=== PATIENT | male | born 1995 | race Caucasian/White ===

== ENCOUNTER 2021-03-08 15:34 | Day surgery (SDC) | payer OTHER ==
[2021-03-08] MEDS ORDERED: SODIUM CHLORIDE 0.9% 1,000 ML IV STA (15:52)
[2021-03-08] MEDS ORDERED: KETOROLAC 30 MG/ML VIAL IVP STA (15:52)
[2021-03-08] MEDS ORDERED: ONDANSETRON 4 MG/2 ML VIAL IVP STA (15:52)
--- NOTE | 2021-03-08 15:54 | ED Physician Documentation ---
PD HPI ABD PAIN - Stated complaint Stated Complaint: ABD PX/VOMITING - Chief complaint Chief Complaint: Abd Pain - History obtained from History obtained from: Patient - Additional information Additional information: Previously healthy 25-year-old gentleman, active duty in the [place] awoke this morning around 8 AM with central, nonmigratory abdominal pain and has been nauseous all day with a single episode of vomiting. Normal bowel movement yesterday, no bowel movement yet today. No history of abdominal surgeries. No fevers or chills. No sick contacts. No diarrhea. Review of Systems Ten Systems: 10 systems reviewed and negative Constitutional: reports: Reviewed and negative Ears: reports: Reviewed and negative Nose: reports: Reviewed and negative Throat: reports: Reviewed and negative PD PAST MEDICAL HISTORY - Allergies Allergies/Adverse Reactions: Allergies Allergy/AdvReac Type Severity Reaction Status Date / Time No Known Drug Allergies Allergy Verified 03/08/21 15:44 PD ED PE NORMAL - Vitals Vital signs reviewed: Yes - General General: Alert and oriented X 3, No acute distress - HEENT HEENT: PERRL, EOMI - Neck Neck: Supple, no meningeal sign, No bony TTP - Cardiac Cardiac: RRR, No murmur - Respiratory Respiratory: No respiratory distress, Clear bilaterally - Abdomen Abdomen: Normal bowel sounds, Soft, Other (Mild lower abdominal tenderness, on initial examination seems worse on the left than the right without guarding or rebound tenderness.) - Back Back: No CVA TTP, No spinal TTP - Derm Derm: Normal color, Warm and dry - Extremities Extremities: No edema, No calf tenderness / cord - Neuro Neuro: Alert and oriented X 3, Normal speech Results - Vitals Vitals: Vital Signs - 24 hr 03/08/21 15:39 Temperature 36.8 C Heart Rate 95 Respiratory 15 Rate Blood Pressure 146/97 H O2 Saturation 99 Oxygen O2 Source Room air - Labs Labs: Laboratory Tests 03/08/21 03/08/21 03/08/21 15:57 16:14 16:14 WBC 10.3 RBC 5.25 Hgb 16.2 Hct 46.8 MCV 89.1 MCH 30.9 MCHC 34.6 RDW 12.5 Plt Count 301 MPV 9.4 Neut # (Auto) 8.0 H Lymph # (Auto) 1.3 L [place] # (Auto) 0.7 Eos # (Auto) 0.2 Baso # (Auto) 0.1 Absolute Nucleated RBC 0.00 Nucleated RBC % 0.0 Sodium 141 Potassium 4.3 Chloride 103 Carbon Dioxide 28 Anion Gap 10.0 BUN 11 Creatinine 0.8 Estimated GFR (MDRD) 118 Glucose 114 H Calcium 9.7 Total Bilirubin 0.6 AST 20 ALT 43 Alkaline Phosphatase 85 Total Protein 7.9 Albumin 4.7 Globulin 3.2 Albumin/Globulin Ratio 1.5 Lipase 40 Urine Color YELLOW Urine Clarity CLEAR Urine pH 7.0 Ur Specific [place] 1.020 Urine Protein NEGATIVE Urine Glucose (UA) NEGATIVE Urine Ketones NEGATIVE Urine Occult Blood SMALL H Urine Nitrite NEGATIVE Urine Bilirubin NEGATIVE Urine Urobilinogen 0.2 (NORMAL) Ur Leukocyte Esterase NEGATIVE Urine RBC 0-5 Urine WBC 0-3 Ur Squamous Epith Cells NONE SEEN Urine Bacteria None Seen Ur Microscopic Review INDICATED Urine Culture Comments NOT INDICATED PD MEDICAL DECISION MAKING - ED course ED course: 25-year-old gentleman presents with central abdominal pain one episode of vomiting, fairly unimpressive exam, borderline high white count with slight left shift. CT concerning for early appendicitis. On-call surgeon, Dr. Mahesh Rehman was consulted at 5:36 PM and recommend Zosyn in the interim and will see the patient. Departure - Departure Disposition: ED Transfer to [facility] Clinical Impression: Appendicitis Qualifiers: Appendicitis type: acute appendicitis Acute appendicitis type: with localized peritonitis Appendicitis gangrene presence: without gangrene Appendicitis perforation presence: without perforation Appendicitis abscess presence: without abscess Qualified Code(s): K35.30 - Acute appendicitis with localized peritonitis, without perforation or gangrene Condition: Stable
[2021-03-08] MEDS ORDERED: IOPAMIDOL-300 100 ML VIAL ONE (15:55)
[2021-03-08 16:08] LABS: BILIRUBIN,URINE NEGATIVE (NEGATIVE); GLUCOSE, URINE (UA) NEGATIVE (NEGATIVE); KETONES,URINE (UA) NEGATIVE (NEGATIVE); LEUKOCYTE ESTERASE, URINE NEGATIVE (NEGATIVE); NITRITE,URINE NEGATIVE (NEGATIVE); OCCULT BLOOD,URINE SMALL (NEGATIVE); PROTEIN,URINE NEGATIVE (NEGATIVE); UROBILINOGEN,URINE 0.2 (NORMAL) E.U./dL (NORMAL)
[2021-03-08 16:11] LABS: CLARITY,URINE CLEAR (CLEAR)
[2021-03-08 16:21] LABS: BACTERIA,URINE None Seen /HPF (None Seen); RBC,URINE 0-5 /HPF (0-5); SQUAMOUS EPITHELIAL CELL,UR NONE SEEN (<= Few); WBC,URINE 0-3 /HPF (0-3)
[2021-03-08 16:24] LABS: BASOPHILS # (AUTO) 0.1 10^3/uL (0.0-0.1); BASOPHILS % (AUTO) 0.5 %; EOSINOPHILS # (AUTO) 0.2 10^3/uL (0.0-0.7); EOSINOPHILS % (AUTO) 1.9 %; HCT - HEMATOCRIT 46.8 % (42.0-52.0); HGB - HEMOGLOBIN 16.2 g/dL (14.0-18.0); LYMPHOCYTES # (AUTO) 1.3 10^3/uL (1.5-3.5); LYMPHOCYTES % (AUTO) 13.1 %; MEAN CORPUSCULAR HEMOGLOBIN 30.9 pg (27.0-31.0); MEAN CORPUSCULAR HGB CONC 34.6 g/dL (32.0-36.0); MEAN CORPUSCULAR VOLUME 89.1 fL (80.0-94.0); MEAN PLATELET VOLUME 9.4 fL (7.4-11.4); MONOCYTES # (AUTO) 0.7 10^3/uL (0.0-1.0); MONOCYTES % (AUTO) 6.3 %; NEUTROPHILS % (AUTO) 77.7 %; PLT - PLATELET COUNT 301 10^3/uL (130-450); RED BLOOD COUNT 5.25 10^6/uL (4.70-6.10); RED CELL DISTRIBUTION WIDTH 12.5 % (12.0-15.0); WHITE BLOOD COUNT 10.3 x10^3/uL (4.8-10.8)
[2021-03-08 16:38] LABS: ALBUMIN 4.7 g/dL (3.2-5.5); ALBUMIN/GLOBULIN RATIO 1.5 (1.0-2.2); BILIRUBIN,TOTAL 0.6 mg/dL (0.2-1.0); CALCIUM 9.7 mg/dL (8.5-10.3); CREATININE 0.8 mg/dL (0.6-1.2); POTASSIUM 4.3 mmol/L (3.5-5.0); TOTAL PROTEIN 7.9 g/dL (6.7-8.2)
[2021-03-08] MEDS ORDERED: IOPAMIDOL-300 100 ML VIAL IVP ONE (16:51)
--- NOTE | 2021-03-08 17:23 | CT Report ---
PROCEDURE: Abdomen/Pelvis W INDICATIONS: IV only, low abd pain CONTRAST: IV CONTRAST: Isovue 300 ml: 100 PO CONTRAST: *NO PO CONTRAST TECHNIQUE: After the administration of nonionic contrast, 5 mm thick sections acquired from the diaphragms to th e symphysis. 5 mm thick coronal and sagittal reformats were acquired. For radiation dose reduction, the following was used: automated exposure control, adjustment of mA and/or kV according to patient size. COMPARISON: None. FINDINGS: Image quality: Excellent. ABDOMEN: Lung bases: Lung bases are clear. Heart size is normal. Solid organs: Liver and spleen are normal in size and enhancement. Gallbladder is normal in appeara nce. Biliary system is non dilated. Pancreas enhances normally. No adrenal nodules. Kidneys demon strate normal size and enhancement, without hydronephrosis. Peritoneum and bowel: The stomach and small bowel are unremarkable. No evidence of obstruction. The a ppendix is dilated measuring up to 1.0 cm. There is subtle adjacent inflammation. The colon is normal in appearance. No free fluid or air. Nodes and vessels: No retroperitoneal or mesenteric adenopathy by size criteria. Aorta and inferior vena cava are normal in size. Miscellaneous: No ventral hernias. PELVIS: Genitourinary: Bladder wall thickness is normal. Miscellaneous: No inguinal hernias or adenopathy. Bones: No suspicious bony lesions. No vertebral body compression fractures. IMPRESSION: Dilated fluid-filled appendix with subtle adjacent inflammation concerning for early appendicitis. No evidence of complication. Reviewed by: Buddy High DO on 03/08/2021 4:21 PM YOLANDA Approved by: Buddy High DO on 03/08/2021 4:21 PM AKNEPTALI Station ID: [id number]
[2021-03-08] MEDS ORDERED: PIPERACILLIN/TAZOBACTAM 3.375 GM in SODIUM CHLORIDE 0.9% MINIBAG 100 ML IV STA (17:35)
[2021-03-08] MEDS ORDERED: HYDROmorphone 0.5 MG/0.5 ML SYRINGE IVP PRN (20:39)
[2021-03-08] MEDS ORDERED: ONDANSETRON 4 MG/2 ML VIAL IVP PRN (20:39)
--- NOTE | 2021-03-08 20:42 | SURGERY HX AND PHYSICAL(T) ---
Surgical History & Physical - Chief Complaint/HPI Chief Complaint: Acute appendicitis History of Present Illness: 25-year-old male presenting with 1 day of abdominal pain. Work-up included CT scan as well as lab evaluation. Patient notable for a mild leukocytosis, however imaging consistent with early appendicitis with inflammatory changes. Patient with no significant past medical or surgical history. Patient with p.o. ingestion this afternoon; thus opted to proceed to the operating room urgently for laparoscopic intervention the next a.m. - PMH/PSH/Social Hx Cardiovascular: Atrial fibrillation Smoking Status: Never smoker Does the pt drink ETOH?: Yes Frequency: Occasional Does the pt have substance abuse?: No - Home Meds and Allergies Allergies/Adverse Reactions: Allergies Allergy/AdvReac Type Severity Reaction Status Date / Time No Known Drug Allergies Allergy Verified 03/08/21 15:44 - Review of Systems Constitutional: Fatigue, Fever Gastrointestinal: Nausea, Abdominal pain Gentinourinary: No: Dysuria - Vital Signs Heart Rate: 61 Blood Pressure: 126/80 Temperature: 36.8 C Respiratory Rate: 16 O2 Saturation: 98 Weight (kg): 93.44 kg Height: 1.75 m - Physical Exam Comments/Other: General Appearance: positive: No acute distress Eyes Bilateral: positive: Normal inspection ENT: positive: ENT inspection nml Neck: positive: Nml inspection Respiratory: positive: Chest non-tender, No respiratory distress, Breath sounds nml. negative: Wheezes, Rales, Rhonchi Cardiovascular: positive: Regular rate & rhythm Abdomen: Soft, mildly distended. Positive tenderness to deep palpation suprapubic. No rebound no guarding. No generalized peritoneal signs. Extremities: positive: Non-tender, Full ROM, Nml appearance Neurologic/Psychiatric: positive: Oriented x3, CN's nml (2-12) - Patient Review Patient Review: Problems were reviewed with the patient during this visit. Medications were reviewed with the patient during this visit. Allergies were reviewed this patient during this visit. Pertinent Tests Reviewed: All pertitent test for this patient were reviewed. - Assessment & Plan Assessment and Plan: 25-year-old male presenting with acute appendicitis with no comorbid states. Leukocytosis to 10.3, CT consistent with early appendicitis. Plan going forward is as follows: 1. Bowel rest, IV fluid resuscitation, IV antibiotics. 2. Preoperative chest x-ray, preoperative EKG, labs evaluated. 3. Planned diagnostic laparoscopy, laparoscopic appendectomy, other indicated procedures. Patient counseled of the risk associated with operative intervention including but not limited to conversion to open procedure, injury to local structures, and anesthesia risks of heart attack, stroke, . 4. Postoperative care under observation status with continued IV antibiotics. CT abdomen pelvis impression: 1. Dilated fluid-filled appendix with subtle adjacent inflammation concerning for early appendicitis. No evidence of complication.
[2021-03-08 20:43] LABS: B. PARAPERTUSSIS- RESP PCR PAN NOT DETECTED; B. PERTUSSIS- RESP PCR PANEL NOT DETECTED; C. PNEUMONIAE- RESP PCR PANEL NOT DETECTED; CORONAVIRUS 229E-RESP PCR NOT DETECTED; CORONAVIRUS HKU1-RESP PCR NOT DETECTED; CORONAVIRUS NL63-RESP PCR NOT DETECTED; CORONAVIRUS OC43-RESP PCR NOT DETECTED; HUMAN METAPNEUMOVIRUS NOT DETECTED; INFLUENZA A- RESP PCR PANEL NOT DETECTED; INFLUENZA B - RESP PCR PANEL NOT DETECTED; M. PNEUMONIAE- RESP PCR PANEL NOT DETECTED; PARAINFLUENZA VIRUS 1 NOT DETECTED; PARAINFLUENZA VIRUS 2 NOT DETECTED; PARAINFLUENZA VIRUS 3 NOT DETECTED; PARAINFLUENZA VIRUS 4 NOT DETECTED; RHINOVIRUS/ENTEROVIRUS NOT DETECTED; RSV- RESP PCR PANEL NOT DETECTED; SARS-CoV-2 -RESP PCR PANEL NOT DETECTED
[2021-03-08] MEDS ORDERED: PREGABALIN 100 MG CAPSULE PO SCH (21:00)
[2021-03-08] MEDS: D5NS W/20 MEQ KCL 1,000 ML IV SCH (21:35)
[2021-03-08] MEDS: HEPARIN 5,000 UNIT/ML VIAL SUBQ SCH (21:38)
[2021-03-08] MEDS: PREGABALIN 100 MG CAPSULE PO SCH (21:59)
[2021-03-08] MEDS: PIPERACILLIN/TAZOBACTAM 3.375 GM in SODIUM CHLORIDE 0.9% MINIBAG 100 ML IV SCH (21:59)
[2021-03-09] MEDS: methocarbamoL 500 MG TABLET PO SCH ×3 (00:32→13:32)
[2021-03-09] MEDS: ACETAMINOPHEN 1,000 MG/100 ML 100 ML IV SCH ×3 (00:32→13:31)
[2021-03-09] MEDS: SODIUM CHLORIDE FLUSH 0.9% 10 ML SYRINGE IVP PRN ×2 (00:32→05:34)
[2021-03-09] MEDS: METOCLOPRAMIDE 10 MG/2 ML VIAL IVP SCH ×3 (00:32→13:32)
[2021-03-09] MEDS: PIPERACILLIN/TAZOBACTAM 3.375 GM in SODIUM CHLORIDE 0.9% MINIBAG 100 ML IV SCH ×2 (02:50→10:47)
[2021-03-09 05:53] LABS: ALBUMIN 3.7 g/dL (3.2-5.5); ALBUMIN/GLOBULIN RATIO 1.4 (1.0-2.2); BILIRUBIN,TOTAL 0.8 mg/dL (0.2-1.0); CALCIUM 8.8 mg/dL (8.5-10.3); CREATININE 0.8 mg/dL (0.6-1.2); POTASSIUM 3.9 mmol/L (3.5-5.0); TOTAL PROTEIN 6.3 g/dL (6.7-8.2)
[2021-03-09] MEDS: D5NS W/20 MEQ KCL 1,000 ML IV SCH (06:52)
[2021-03-09] MEDS ORDERED: MIDAZOLAM 2 MG/2 ML VIAL ONE (06:56)
[2021-03-09] MEDS ORDERED: LIDOCAINE-MPF 2% 5 ML VIAL ONE (06:57)
[2021-03-09] MEDS ORDERED: PROPOFOL 200 MG/20 ML VIAL IVP ONE (06:57)
[2021-03-09] MEDS ORDERED: fentaNYL 100 MCG/2 ML VIAL ONE ×2 (06:57→08:27)
[2021-03-09] MEDS ORDERED: ROCURONIUM 50 MG/5 ML VIAL ONE (06:58)
[2021-03-09] MEDS ORDERED: BUPIVACAINE 0.5%-EPI 1:200000 PF 30 ML VIAL ONE (07:31)
[2021-03-09] MEDS ORDERED: LIDOCAINE-MPF 1% 30 ML VIAL ONE (07:31)
[2021-03-09] MEDS ORDERED: HYDROmorphone 0.5 MG/0.5 ML SYRINGE IVP PRN (07:34)
[2021-03-09] MEDS ORDERED: ePHEDrine 50 MG/ML VIAL IVP PRN (07:34)
[2021-03-09] MEDS ORDERED: MORPHINE 2 MG/ML CARPUJECT IVP PRN (07:34)
[2021-03-09] MEDS ORDERED: ATROPINE ABBOJECT 1 MG/10 ML SYRINGE IVP PRN (07:34)
[2021-03-09] MEDS ORDERED: NALOXONE 0.4 MG/ML VIAL IVP PRN (07:34)
[2021-03-09] MEDS ORDERED: ONDANSETRON 4 MG/2 ML VIAL IVP PRN (07:34)
[2021-03-09] MEDS ORDERED: METOCLOPRAMIDE 10 MG/2 ML VIAL IVP PRN (07:34)
[2021-03-09] MEDS ORDERED: fentaNYL 100 MCG/2 ML VIAL IVP PRN (07:34)
--- NOTE | 2021-03-09 07:34 | ANESTHESIA ---
Pre-Anesthesia VS, & Labs - Diagnosis appendicitis - Procedure laparoscopic appendectomy Vital Signs: Temp Pulse Resp BP Pulse Ox 36.8 C 61 16 126/80 98 03/09/21 07:25 03/09/21 07:25 03/09/21 07:25 03/09/21 07:25 03/09/21 07:25 Height: 5 ft 9 in Weight (kg): 93.44 kg Body Mass Index: 30.4 BMI Classification: Obese - NPO >8 hours - Lab Results Current Lab Results: Laboratory Tests 03/09/21 05:24: Sodium 140, Potassium 3.9, Chloride 108, Carbon Dioxide 26, Anion Gap 6.0, BUN 8, Creatinine 0.8, Estimated GFR (MDRD) 118, Glucose 114 H, Calcium 8.8, Total Bilirubin 0.8, AST 15, ALT 33, Alkaline Phosphatase 65, Total Protein 6.3 L, Albumin 3.7, Globulin 2.6, Albumin/Globulin Ratio 1.4 03/08/21 16:14: Sodium 141, Potassium 4.3, Chloride 103, Carbon Dioxide 28, Anion Gap 10.0, BUN 11, Creatinine 0.8, Estimated GFR (MDRD) 118, Glucose 114 H, Calcium 9.7, Total Bilirubin 0.6, AST 20, ALT 43, Alkaline Phosphatase 85, Total Protein 7.9, Albumin 4.7, Globulin 3.2, Albumin/Globulin Ratio 1.5, Lipase 40 03/08/21 16:14: WBC 10.3, RBC 5.25, Hgb 16.2, Hct 46.8, MCV 89.1, MCH 30.9, MCHC 34.6, RDW 12.5, Plt Count 301, MPV 9.4, Neut # (Auto) 8.0 H, Lymph # (Auto) 1.3 L, [place] # (Auto) 0.7, Eos # (Auto) 0.2, Baso # (Auto) 0.1, Absolute Nucleated RBC 0.00, Nucleated RBC % 0.0 Fish Bones: 03/08/21 16:14 03/09/21 05:24 Home Medications and Allergies Active Medications Heparin Sodium (Porcine) (Heparin 5,000 Unit/Ml Vial) 5,000 unit SUBQ BID MARIE Last Admin: 03/08/21 21:38 Dose: Not Given Documented by: Hydromorphone HCl (Hydromorphone 0.5 Mg/0.5 Ml Syringe) 0.5 mg IVP Q2H PRN PRN Reason: PAIN Potassium Chloride/Dextrose/Sod Cl (D5ns W/20 Meq Kcl) 1,000 mls @ 125 mls/hr IV .Q8H [facility] Last Admin: 03/09/21 06:52 Dose: 125 mls/hr Documented by: Acetaminophen (Ofirmev) 100 mls @ 400 mls/hr IV Q6HR [facility] Last Infusion: 03/09/21 05:52 Dose: Infused Documented by: Piperacillin Sod/Tazobactam (Sod 3.375 gm/ Sodium Chloride) 100 mls @ 200 mls/hr IV Q6H [facility] Last Infusion: 03/09/21 03:20 Dose: Infused Documented by: Methocarbamol (Methocarbamol 500 Mg Tablet) 500 mg PO Q6HR [facility] Last Admin: 03/09/21 05:34 Dose: 500 mg Documented by: Metoclopramide HCl (Metoclopramide 10 Mg/2 Ml Vial) 10 mg IVP Q6HR [facility] Last Admin: 03/09/21 05:36 Dose: 10 mg Documented by: Ondansetron HCl (Ondansetron 4 Mg/2 Ml Vial) 4 mg IVP Q6HR PRN PRN Reason: Nausea / Vomiting Pregabalin (Pregabalin 100 Mg Capsule) 100 mg PO BID [facility] Last Admin: 03/08/21 21:59 Dose: 100 mg Documented by: Sodium Chloride (Sodium Chloride Flush 0.9% 10 Ml Syringe) 10 ml IVP PRN PRN PRN Reason: NEEDED PER PROVIDER ORDERS Last Admin: 03/09/21 05:34 Dose: 10 ml Documented by: Allergies/Adverse Reactions: Allergies Allergy/AdvReac Type Severity Reaction Status Date / Time No Known Drug Allergies Allergy Verified 03/08/21 15:44 Anes History & Medical History - Anesthetic History Anesthesia Complications: reports: No previous complications - Medical History Cardiovascular: reports: Atrial fibrillation Pulmonary: reports: None Smoking Status: Never smoker History of Cancer?: No Exam General: Alert Dental: WNL Mouth Opening: Greater than 4 Fingerbreadths Neck Mobility: Normal Mallampati classification: II Respiratory: Lungs clear Cardiovascular: Regular rate Plan Anesthesia Type: General Consent for Procedure(s) Verified and Reviewed: Yes Code Status: Attempt Resuscitation ASA classification: 2-Mild systemic disease Is this case an emergency?: No
[2021-03-09] MEDS ORDERED: GLYCOPYRROLATE 1 MG/5 ML VIAL ONE (07:48)
[2021-03-09] MEDS ORDERED: DEXAMETHASONE 4 MG/ML VIAL ONE (07:56)
[2021-03-09] MEDS ORDERED: ONDANSETRON 4 MG/2 ML VIAL ONE (07:56)
[2021-03-09] MEDS ORDERED: LACTATED RINGERS 1,000 ML IV SCH (08:00)
[2021-03-09] MEDS ORDERED: NEOSTIGMINE 1 MG/1 ML 10 ML MDV ONE (08:14)
[2021-03-09] MEDS ORDERED: KETOROLAC 30 MG/ML VIAL ONE (08:17)
[2021-03-09] MEDS ORDERED: LIDOCAINE 1% 50 ML MDV SUBQ ONE ×2 (08:31)
[2021-03-09] MEDS ORDERED: BUPIVACAINE 0.5%-EPI 1:200000 PF 30 ML VIAL SUBQ ONE ×2 (08:31)
[2021-03-09] MEDS ORDERED: oxyCODONE 5 MG TABLET PO PRN (08:57)
[2021-03-09] MEDS ORDERED: LACTATED RINGERS 500 ML IV ONE (09:02)
--- NOTE | 2021-03-09 09:02 | OPERATIVE REPORT ---
Operative Report - General Admit Date: 03/08/21 Procedure Date: 03/09/21 Planned Procedure: 1. Diagnostic laparoscopy 2. Laparoscopic appendectomy 3. Lysis of adhesions 4. Abdominal washout 5. Open umbilical hernia repair Pre-Op Diagnosis: Abdominal pain; acute appendicitis Procedure Performed: 1. Diagnostic laparoscopy 2. Laparoscopic appendectomy 3. Lysis of adhesions 4. Abdominal washout 5. Open umbilical hernia repair Post Op Diagnosis: Same; nonsuppurative, nonsuppurative appendicitis - Procedure Note Primary Surgeon: Ori Secondary Surgeon: Kavita Anesthesia Provider: Josué Anesthesia Technique: General ET tube, Local Pathology: Appendix Estimated Blood Loss (mL): 20 Drain/Tube Type: Other (None) Indications: See EMR H&P. Findings: See below. Complications: None - Other Other Information/Narrative: OPERATIVE PROCEDURE: The patient was taken to the operating room, placed supine on the operating table. The patent was already obtained tor informed consent which was documented in the patients permanent medical record The patient was induced for general endotracheal anesthesia. The patient was positioned, off loaded and padded at all pressure points. The patient was prepped and draped in the usual sterile fashion. The patient was called for a time out which was agreed to all in the room. Open Smith technique was performed through umbilicus and umbilical trocar was placed. This was achieved with a circumlinear micah-umbilical incision. This is taken through the subcutaneous fat, the umbilical stalk was dissected off and obvious hernia defect was appreciated. This was done without any injury to the umbilical skin. That [place] defect was enlarged and accommodated Smith trocar without any complication. Insufflation was commenced which the patient tolerated to 15 mmHg well with no complication. Additional trocars were placed suprapubic and left lower quadrant under direct laparoscopic vision. At this time the patient was placed in Trendelenburg position with right side up and we proceeded to isolate the cecum which was adhered to the sidewall. We appreciated a dilated appendix however there is no evidence of perforation and only mild local suppuration. The appendix was continued to be mobilized and thereafter we achieved mobilization medially taking care to note the location of the ureter which was protected and identified throughout the entirety at this case especially given the extent of the patients inflammatory changes. Ultimately the cecum was isolated free, and the appendix was thereafter completely mobilized off the abdominal and pelvic sidewall. At this time there were adhesions noted of the appendix to the ascending colon and cecum and this required careful dissection as well, both blunt and also using the suction computer forensics investigator and laparoscopic electrocautery. At this time a [place] was used to dissect the cecal-appendiceal junction and thereafter using a ENDOGIA linear cutting stapler, the appendix was divided at the base to include portion at the cecum. The ileocecal valve was identified and protected throughout with no involvement. At this time, we continued to mobilize the appendix off the ascending colon and caecum making sure there was no inadvertent injury to the ascending colon and the cecum which was again densely adhered to the appendix. The mesoappendix was also taken with a load of the Endo ERICH laparoscopic staple device, vascular. The appendix which was then placed into an Endo Catch bag for control of any further spillage. The appendiceal staple line and mesoappendix staple line and ligature were evaluated and hemostatic. At this time, we extensively irrigated the abdomen with greater than 2 liters of sterile saline and aspirated clear. At this time all trochars, secondary, were removed under direct laparoscopic visualization with no consequent bleeding. We reevaluated the left lower quadrant trocar and the inferior epigastric vessel for which there was no complication as well as the suprapubic trocar insertion site as well; these were both removed without any complication. We removed the Smith trocar, passed the specimen off for permanent pathology. We closed the umbilical defect with several [id number]'s of 0 Vicryl, and performed umbilicoplasty simultaneous. A mixture of quarter percent Marcaine and 1% lidocaine were instilled within the wounds for a total of 10 cc. All skin and subcutaneous tissue was reapproximated with skin marc. Wounds were dressed Telfa and Tegaderm. I was present for the entirety of this operative intervention patient tolerated procedure well which is no complication. All counts were sponges needles and instruments were correct at the conclusion of this operative case.
--- NOTE | 2021-03-09 10:22 | PHARMACY PROGRESS NOTE ---
- Best Possible Medication History Admit Date and Time: 03/08/212035 Processed by: Pharmacy Medication History completed: Yes Patient Interview: Completed Secondary Source(s): Physician records, Pharmacy records, Insurance records (PATIENT DOES NOT TAKE ANY HOME MEDICATIONS ) As the person ultimately responsible for medication therapy, providers are able to order a medication from an existing home medication list in [facility] via the "Reconcile Routine" prior to Confirmation of that medication by clerical support specialist. Such practice is discouraged except when the physician, in their clinical judgment, deems that a medical need exists for a medication without regard to previous use.
[2021-03-09] MEDS: HEPARIN 5,000 UNIT/ML VIAL SUBQ SCH (10:34)
[2021-03-09] MEDS: PREGABALIN 100 MG CAPSULE PO SCH (10:45)
[2021-03-09 11:34] VITALS: BP 141/83
--- NOTE | 2021-03-09 11:40 | ANESTHESIA POST OP EVALUATION ---
Anesthesia Post Eval - Post Anesthesia Eval Vitals: Last Vital Signs Temp 36.6 C 03/09/21 09:45 Pulse 60 03/09/21 11:31 Resp 20 03/09/21 11:31 BP 141/83 H 03/09/21 11:31 Pulse Ox 100 03/09/21 11:31 CV Function Including HR & BP: Stable Pain Control: Satisfactory Nausea & Vomiting: Negative Mental Status: Baseline Respiratory Status: Airway Patent Hydration Status: Satisfactory Anesthesia Complications: None
== END 2021-03-09 15:30 | disposition home or self-care (01) ==
LOC: ED 15:34 → SDS 19:15 → MS2 19:15 → UNDOADMOB 20:36 → SDS 03-09 15:30 → UNDODISOB 03-09 15:30
PROVIDERS: ATTEND Surgery
PROC: 0DTJ4ZZ Resection of Appendix, Percutaneous Endoscopic Approach (ICD-10-PCS; principal; 2021-03-09 07:30)
DX: K35.80 Unspecified acute appendicitis (principal); I48.91 Unspecified atrial fibrillation; K66.0 Peritoneal adhesions (postprocedural) (postinfection); E66.9 Obesity, unspecified; Z68.30 Body mass index [BMI] 30.0-30.9, adult; Z20.822 Contact with and (suspected) exposure to COVID-19
CPT/HCPCS: 0202U; 36415; 44970; 74177; 80048; 80053; 81001; 83690; 85025; 96365; 96375; 99284; 99285; A9270; J0131; J2765; J7120; Q9967; 81003; 87086

== ENCOUNTER 2021-03-24 14:41 | Outpatient (CLI) | payer OTHER ==
--- NOTE | 2021-03-24 15:23 | SLEEP CARE CONSULTATION ---
Information from patient questionnaire entered by Helga Ledbetter. I have reviewed and concur with the information entered by Helga Ledbetter. This document represents the service I personally performed and the decisions made by me, Ileana Cardozo ARNP. History of Present Illness Service Date and Time: 03/24/2021 1441 Reason for Visit: New patient Chief Complaint: reports: Unrefreshed sleep, Snoring, Excessive daytime sleepiness, Observed pauses in breathing, Other (sleep apnea) Date of Onset: 20 years plus Usual bedtime: 9 pm Time it takes to fall asleep: 1 hour Snores at night: Yes Observed to quit breathing while asleep: Yes Sleeps alone due to snoring: Yes Number of times waking at night: 1-2 Reasons for waking at night: reports: Snoring, Gasping for air, Bathroom Toss, Turn, or Twitch while sleeping: Yes Recalls having dreams: No Usually gets out of bed at: 5 am; 7-8 am Feels refreshed in the morning: No Morning headache: Yes (sometimes, resolves when I take Ibuprofen; 1-2 times a week) Sleepy or fatigued during the day: Yes Ever fallen asleep while driving: No Takes day naps: Yes (on weekends, 1 nap a day) Dreams during day naps: Yes Prior sleep studies: No Additional HPI information: I had the pleasure of seeing CHEKO OLIVIA today regarding the possibility of him having a sleep disorder. His current complaints are loud and frequent snoring, has woke up not breathing, his has observed pauses in breathing when he is sleeping, and unrefreshed sleep. He states he doesn't wake up feeling rested but once up and moving he feels awake. He was at a hospital for an appendectomy two weeks ago and they told him he should get checked for sleep apnea. He tells me that sometimes he has difficulty breathing out his nose. His father snores but does not have sleep apnea. - Parasomnia Symptoms Ever been unable to move upon waking from sleep: No Walks in sleep: No Talks in sleep: Yes Ever acted out dreams in sleep: No Ever felt weak in the knees when startled or emotional: No Bothered by creepy, crawly, restless sensations in legs: No Problems with memory or concentration: Yes (concentration, dx with ADHD when 10- 11 yrs old) Subjective Initial [place] Sleepiness Scale score: 11 (in 2020) Past Medical History Past Medical History: reports: Arrythmia (Atrial fibrillation 2019 episode, no longer has it), Other (ADHD as a child; appendenctomy March 2021) Social History 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 Have you smoked in the past 12 months: No (vapes daily) Cigarettes per day (20/pack): 7 Years of smokin Quit date: 2018 Smoking Pack Years: 1.2 Alcohol use: Yes Alcohol amount and frequency: 4-5 beers weekly Caffeine use: Yes Caffeine amount and frequency: sometimes, not every day Family History Family history of sleep disordered breathing: Yes Family Hx Sleep Apnea: Father: Snoring Allergies and Home Medications Drug allergies reviewed: Yes (NKDA) Home medication list reviewed: Yes Allergy and home medication list: Mulitivitamins Review of Systems Weight gain over past 5 years: 40 Weight loss over past 5 years: 30 Cardiovascular: denies: high blood pressure Gastrointestinal: reports: heartburn, diarrhea Neurological: denies: headaches Psychiatric: reports: Attention Deficit Hyperactivity Ear/Nose/Throat: reports: wisdom teeth removed. denies: tonsillectomy Immunologic: denies: allergies to food or environment Physical Exam Blood Pressure: 135/89 Cuff size: wrist Heart Rate: 94 O2 Saturation: 98 Height: 5 ft 9 in Weight: 219 lb Body Mass Index: 32.3 BMI Classification: Obese Neck circumference: 16.5 (inches) Mouth and throat: narrow oropharynx Soft palate: long Hard palate: normal Uvula: normal Uvula visualization: 100% Mallampati Class I Tongue: enlarged in size with teeth moraes on lateral edges Tonsils: small Neck: normal w/o lymphadenopathy or thyromegaly Heart: regular rate and rhythm Lungs: clear bilaterally Impression and Plan 1. Suspected Obstructive Sleep Apnea-Hypopnea Syndrome, as suggested by a history of loud and irregular snoring, observed cessation of breath while asleep, gasping or choking in sleep, morning headache, unrefreshed sleep, cognitive impairment, and excessive daytime sleepiness. Narrow oropharynx and obesity are common predisposing factors for obstructive sleep apnea-hypopnea syndrome. I recommend proceeding to polysomnography to confirm the diagnosis and to assess severity. If the patient has significant sleep disordered breathing, a manual CPAP titration study will also be performed to find the optimal treatment pressure. I informed the patient of what the sleep studies involve and after some discussion, obtained agreement to proceed. The pathophysiology of obstructive sleep apnea-hypopnea syndrome was discussed with the patient and health risks of cardiovascular and cerebrovascular disease if not treated. Risks of drowsy driving discussed in detail and patient advised to avoid long distance driving and to machine assembler for puller over at the first sign of drowsiness. Patient agreed to plan. * Schedule polysomnography +- manual CPAP titration study and return in 1-2 weeks after the study to discuss result and initiate therapy. * Avoid long distance driving or driving when feeling sleepy. * Avoid alcohol, sedative and muscle relaxant around bedtime. * Attempt to lose weight. * Review instructions provided by trained office staff on how to prepare for the sleep study. * Return for follow-up after sleep study completed. Counseling Topics: Weight loss health impact Visit Type: In Office Time Spent with Patient (minutes): 30 Provider Statement: I spent 100% of the Face to Face Visit with the patient with greater than 50% spent counseling the patient and coordination of care.
[2021-03-24 15:24] VITALS: BP 135/89
== END 2021-03-24 14:42 | disposition home or self-care (01) ==
LOC: SC 14:41
PROVIDERS: ATTEND Nurse Practitioner Family
DX: G47.10 Hypersomnia, unspecified (principal); G47.8 Other sleep disorders; R06.81 Apnea, not elsewhere classified; R06.83 Snoring; R51.9 Headache, unspecified; E66.9 Obesity, unspecified; Z68.32 Body mass index [BMI] 32.0-32.9, adult; F17.290 Nicotine dependence, other tobacco product, uncomplicated
CPT/HCPCS: 99203; 99212

== ENCOUNTER 2021-04-07 20:58 | Outpatient (CLI) | payer OTHER | END 2021-04-07 20:59 | disposition home or self-care (01) | LOC: SC 20:58 | PROVIDERS: ATTEND Nurse Practitioner Family | DX: G47.33 Obstructive sleep apnea (adult) (pediatric) (principal); G47.61 Periodic limb movement disorder; E66.9 Obesity, unspecified; Z68.32 Body mass index [BMI] 32.0-32.9, adult | CPT/HCPCS: 95810 ==

== ENCOUNTER 2021-04-14 07:45 | Outpatient (CLI) | payer OTHER ==
--- NOTE | 2021-04-14 08:19 | SLEEP CARE CONSULTATION ---
Information from patient questionnaire entered by Helga Ledbetter. I have reviewed and concur with the information entered by Helga Ledbetter. This document represents the service I personally performed and the decisions made by , Ileana Cardozo ARNP. History of Present Illness Service Date and Time: 04/14/2021 0745 Initial [place] Sleepiness Scale score: 11 (in 2020) Current [place] Sleepiness Scale score: 8 Additional HPI information: CHEKO OLIVIA returns for follow up and results of the recently performed polysomnography. I explained the pathophysiology behind obstructive sleep apnea. We then spent quite a bit of time discussing different treatment options. For mild obstructive sleep apnea, surgery and oral appliance are alternatives to nasal CPAP therapy but in moderate or severe cases, nasal CPAP is the most effective and reliable treatment. Because apnea is primarily in supine position, then positional management therapy could be effective. Methods discussed such as positioning with pillows, using a T-shirt with tennis balls in the back, and shown commercial products that have a pillow format on back to prevent supine sleep. I reviewed the impact of weight changes on sleep apnea and strongly recommended losing weight. After some discussion, the patient opted to go with the nasal CPAP therapy. Nasal autoCPAP set at 4-15 cmH20 will be ordered with rationale explained. A manual titration study will be ordered if unable to find optimal pressure with office adjustments. I explained how CPAP machine works with sample devices Respironics Dreamstation and ResSnapverse [id number] and what to expect when using the machine. Using CPAP every night in order to get used to it was emphasized. Patient advised to put CPAP mask on before getting into bed so as not to fall asleep without CPAP. To assist acclimation to CPAP use, it could also be used for a short time during day while reading or watching TV. The patient was instructed to call the CPAP supplier to discuss any mechanical problem that may occur. If the mask given is uncomfortable or is difficult to keep on through the night even with adjustment, contact the CPAP supplier as many will replace with another mask style if notified before 30 days. If snoring or perceives is not getting enough air or too much air from the machine, notify this office. [facility] patient education PAP tips reviewed and given to patient. Patient counseled not drink alcohol less than 4 hours before bedtime as it can increase snoring and apnea. Patient was cautioned about risks of drowsy driving until sleepiness symptoms resolve. Sleep Study - Results Type of Sleep Study: Home sleep study Prior sleep studies: No Polysomnography/Home Sleep Study results: IMPRESSION: The quality of the study is good. The patient had normal sleep efficiency. The sleep architecture was abnormal for sleep fragmentation and reduced amount of time spent in REM sleep. Respiratory monitoring showed severe obstructive sleep apnea-hypopnea (AHI = 40.1) associated with frequent arousals, oxyhemoglobin desaturation and moderate hypoxia (joseph oxygen saturation of 75%). Baseline oxygen saturation was normal. The respiratory events occurred slightly more frequently during supine sleep (supine AHI = 45.3; non-supine = 25.35). Snore was loud in intensity. There was mild periodic leg movement of sleep not contributing to the sleep fragmentation.. Cardiac rhythm was normal sinus rhythm without significant arrhythmia. No abnormal behavior (parasomnia) observed during the night. Allergies and Home Medications Home medication list reviewed: Yes (no changes) Review of Systems Review of systems same as previous: Yes (no changes) Physical Exam Heart Rate: 86 O2 Saturation: 98 Height: 5 ft 9 in Weight: 222 lb Body Mass Index: 32.8 BMI Classification: Obese Impression and Plan 1. Obstructive Sleep Apnea-Hypopnea Syndrome, 40.1, with lowest oxygen saturation of 75%. Obviously this is the cause of the patients symptoms of unrefreshed sleep, and excessive daytime sleepiness. Positive pressure therapy could benefit history of arrhythmia and attention deficit. A manual titration study will be completed to find optimal treatment pressure with office adjustments. Compliance guidelines also reviewed. A copy of compliance guidelines will be given for reference at check out. Because the apnea is more severe supine, I instructed to avoid sleeping supine using pillow positioning until able to start CPAP use. 2. Periodic limb movement, mild, that did not fragment patients sleep. Periodic limb movement of sleep (PLMS) is characterized by episodes of repetitive limb movements that occur during sleep and usually involve the lower limbs. Patient was advised that no treatment is needed at this time. If symptoms increase, then further evaluation is indicated. * Titration study. * Attempt to lose weight. * Avoid alcohol consumption near bedtime. * Avoid supine sleep until using CPAP. * The patient is again cautioned about driving until sleepiness completely resolves. * Return after titration study to start CPAP. Counseling Topics: Weight loss health impact Visit Type: In Office Time Spent with Patient (minutes): 21 Provider Statement: I spent 100% of the Face to Face Visit with the patient with greater than 50% spent counseling the patient and coordination of care.
== END 2021-04-14 07:46 | disposition home or self-care (01) ==
LOC: SC 07:45
PROVIDERS: ATTEND Nurse Practitioner Family
DX: G47.33 Obstructive sleep apnea (adult) (pediatric) (principal); E66.9 Obesity, unspecified; Z68.32 Body mass index [BMI] 32.0-32.9, adult
CPT/HCPCS: 99212; 99213

== ENCOUNTER 2021-09-22 01:31 | Emergency (ER) | payer OTHER ==
[2021-09-22 01:51] LABS: BILIRUBIN,URINE NEGATIVE (NEGATIVE); GLUCOSE, URINE (UA) NEGATIVE (NEGATIVE); KETONES,URINE (UA) NEGATIVE (NEGATIVE); LEUKOCYTE ESTERASE, URINE MODERATE (NEGATIVE); NITRITE,URINE NEGATIVE (NEGATIVE); OCCULT BLOOD,URINE LARGE (NEGATIVE); PROTEIN,URINE NEGATIVE (NEGATIVE); UROBILINOGEN,URINE 0.2 (NORMAL) E.U./dL (NORMAL)
[2021-09-22 01:52] LABS: CLARITY,URINE CLEAR (CLEAR)
[2021-09-22 01:57] LABS: SQUAMOUS EPITHELIAL CELL,UR NONE SEEN (<= Few); WBC,URINE >25 /HPF (0-3)
[2021-09-22 01:58] LABS: BACTERIA,URINE Few /HPF (None Seen)
[2021-09-22 02:36] LABS: BASOPHILS % (AUTO) 0.3 %; EOSINOPHILS # (AUTO) 0.2 10^3/uL (0.0-0.7); HGB - HEMOGLOBIN 16.3 g/dL (14.0-18.0); LYMPHOCYTES # (AUTO) 1.3 10^3/uL (1.5-3.5); LYMPHOCYTES % (AUTO) 11.2 %; MEAN CORPUSCULAR HEMOGLOBIN 30.9 pg (27.0-31.0); MEAN CORPUSCULAR HGB CONC 34.7 g/dL (32.0-36.0); MEAN PLATELET VOLUME 9.3 fL (7.4-11.4); MONOCYTES # (AUTO) 0.9 10^3/uL (0.0-1.0); MONOCYTES % (AUTO) 7.8 %; NEUTROPHILS # (AUTO) 9.1 10^3/uL (1.5-6.6); NEUTROPHILS % (AUTO) 78.4 %; PLT - PLATELET COUNT 258 10^3/uL (130-450); RED BLOOD COUNT 5.28 10^6/uL (4.70-6.10); RED CELL DISTRIBUTION WIDTH 12.3 % (12.0-15.0); WHITE BLOOD COUNT 11.6 x10^3/uL (4.8-10.8)
--- NOTE | 2021-09-22 02:43 | ED Physician Documentation ---
History of Present Illness - Stated complaint Stated Complaint: BLOOD IN URINE, CHILLS - Chief complaint Chief Complaint: UTI - History obtained from History obtained from: Patient - Additonal information Additional information: 25yM with PMH fabio, psh appendectomy p/w suprapubic discomfort, dysuria and hematuria since 11pm last night. patient also exeriencing increased frequency. monogamous with . denies abnormal discharge, genital pain, back pain, n/v. +chills. Review of Systems Constitutional: reports: Chills : reports: Dysuria, Frequency, Hematuria Musculoskeletal: denies: Back pain PD PAST MEDICAL HISTORY - Past Medical History Past Medical History: Yes Cardiovascular: Atrial fibrillation Respiratory: None - Past Surgical History Past Surgical History: Yes General: Appendectomy - Present Medications Home Medications: Ambulatory Orders Medication Instructions Recorded Confirmed Cefpodoxime Proxetil [Vantin] 200 mg PO Q12H #28 tablet 09/22/21 - Allergies Allergies/Adverse Reactions: Allergies Allergy/AdvReac Type Severity Reaction Status Date / Time No Known Drug Allergies Allergy Verified 09/22/21 01:46 - Social History Does the pt smoke?: No Smoking Status: Never smoker Does the pt drink ETOH?: Yes Does the pt have substance abuse?: No - Immunizations Immunizations are current?: Yes - POLST Patient has POLST: No PD ED PE NORMAL - Vitals Vital signs reviewed: Yes - General General: Alert and oriented X 3, No acute distress, Well developed/nourished - HEENT HEENT: Atraumatic, PERRL, EOMI - Neck Neck: Supple, no meningeal sign - Cardiac Cardiac: RRR - Respiratory Respiratory: No respiratory distress, Clear bilaterally - Abdomen Abdomen: Non tender, Non distended - Derm Derm: Normal color, Warm and dry - Extremities Extremities: No deformity - Neuro Neuro: Alert and oriented X 3 - Psych Psych: Normal mood, Normal affect Results - Vitals Vitals: Vital Signs - 24 hr 09/22/21 09/22/21 01:36 01:49 Temperature 37.5 C 37.5 C Heart Rate 97 97 Respiratory 18 18 Rate Blood Pressure 142/83 H 142/83 H O2 Saturation 99 99 Oxygen O2 Source Room air - Labs Labs: Laboratory Tests 09/22/21 09/22/21 09/22/21 01:47 02:30 02:30 WBC 11.6 H RBC 5.28 Hgb 16.3 Hct 47.0 MCV 89.0 MCH 30.9 MCHC 34.7 RDW 12.3 Plt Count 258 MPV 9.3 Neut # (Auto) 9.1 H Lymph # (Auto) 1.3 L Cobb # (Auto) 0.9 Eos # (Auto) 0.2 Baso # (Auto) 0.0 Absolute Nucleated RBC 0.00 Nucleated RBC % 0.0 Sodium 137 Potassium 3.9 Chloride 101 Carbon Dioxide 22 Anion Gap 14.0 H BUN 14 Creatinine 0.8 Estimated GFR (MDRD) 118 Glucose 110 H Calcium 9.6 Urine Color YELLOW Urine Clarity CLEAR Urine pH 6.0 Ur Specific [place] <=1.005 Urine Protein NEGATIVE Urine Glucose (UA) NEGATIVE Urine Ketones NEGATIVE Urine Occult Blood LARGE H Urine Nitrite NEGATIVE Urine Bilirubin NEGATIVE Urine Urobilinogen 0.2 (NORMAL) Ur Leukocyte Esterase MODERATE H Urine RBC 11-25 H Urine WBC >25 H Ur Squamous Epith Cells NONE SEEN Urine Bacteria Few Urine Culture Comments INDICATED PD MEDICAL DECISION MAKING - ED course ED course: 25yM p/w uti symptoms, +leuks and blood on u/a. no cva tenderness, no pain c/w kidney stones. will test for STI but patient believes he is low risk. rx for vantin provided. return precautions given. plan to f/u outpatient urology. Departure - Departure Clinical Impression: UTI (urinary tract infection) Condition: Good Instructions: ED UTI Cystitis Male Follow-Up: Gaye Cortez MD [Physician No Access] - Prescriptions: Cefpodoxime Proxetil [Vantin] 200 mg PO Q12H #28 tablet Comments: You were seen in the emergency department for uti. Your kidney tests were normal. We will call if your other tests are abnormal. Please return if you have new or worsening symptoms or other concerns. Take your antibiotics as prescribed and follow up with your primary doctor for referral to urology.
[2021-09-22 02:45] LABS: CALCIUM 9.6 mg/dL (8.5-10.3); CREATININE 0.8 mg/dL (0.6-1.2); POTASSIUM 3.9 mmol/L (3.5-5.0)
[2021-09-22] MEDS ORDERED: AZITHROMYCIN 250 MG TABLET PO STA (02:46)
[2021-09-22] MEDS ORDERED: cefTRIAXone 250 MG VIAL IM STA (02:46)
[2021-09-22] MEDS ORDERED: LIDOCAINE 1% 2 ML VIAL MC ONE (02:46)
[2021-09-22 02:59] VITALS: BP 139/82
[2021-09-22 20:40] LABS: CHLAMYDIA TRACHOMATIS DNA NEGATIVE (NEGATIVE); NEISSERIA GONORRHOEAE DNA NEGATIVE (NEGATIVE)
== END 2021-09-22 03:05 | disposition home or self-care (01) ==
LOC: ED 01:31
DX: N39.0 Urinary tract infection, site not specified (principal)
CPT/HCPCS: 36415; 80048; 81001; 85025; 87086; 87181; 87491; 87591; 96372; 99283; A9270; 87661

== ENCOUNTER 2022-01-26 23:35 | Emergency (ER) | payer OTHER ==
--- NOTE | 2022-01-27 00:32 | ED Physician Documentation ---
History of Present Illness - Stated complaint Stated Complaint: PANIC ATTACK - Chief complaint Chief Complaint: MHE - History obtained from History obtained from: Patient - History of Present Illness Timing: Prior to arrival (21:00), Today Pain level max: 0 Pain level now: 0 - Additonal information Additional information: c/o panic attack per patient. Sudden onset at 9 PM while at rest at work of rapid palpitations, lightheadedness, fight or flight instinct kicked in. He says he has had similar episodes before but has always been able to stay calm and talk/work his way through the episodes. He was unable to do so tonight and thus this is the longest episode he has ever had. He denies SI/HI/AH/VH. No inciting event. Has not sought medical attention for this problem until tonight. Review of Systems Cardiac: reports: Palpitations. denies: Chest pain / pressure Respiratory: reports: Reviewed and negative GI: reports: Reviewed and negative Neurologic: denies: Headache Psychiatric: reports: Anxiety. denies: Depressed, Suicidal, Homicidal, Hallucinations, Delusions PD PAST MEDICAL HISTORY - Past Medical History Past Medical History: Yes Cardiovascular: Atrial fibrillation Respiratory: None Psych: Anxiety - Past Surgical History Past Surgical History: Yes General: Appendectomy - Present Medications Home Medications: Ambulatory Orders Medication Instructions Recorded Confirmed Cefpodoxime Proxetil [Vantin] 200 mg PO Q12H #28 tablet 09/22/21 LORazepam [Ativan] 0.5 - 1 mg PO BID PRN #14 tablet 01/27/22 - Allergies Allergies/Adverse Reactions: Allergies Allergy/AdvReac Type Severity Reaction Status Date / Time No Known Drug Allergies Allergy Verified 01/26/22 23:44 - Social History Does the pt smoke?: No Smoking Status: Never smoker Does the pt drink ETOH?: Yes Does the pt have substance abuse?: No - Immunizations Immunizations are current?: Yes - POLST Patient has POLST: No PD ED PE NORMAL - Vitals Vital signs reviewed: Yes - General General: Alert and oriented X 3, No acute distress, Well developed/nourished - Neck Neck: Supple, no meningeal sign - Cardiac Cardiac: RRR, No murmur, No gallop, No rub - Respiratory Respiratory: No respiratory distress, Clear bilaterally - Neuro Neuro: Alert and oriented X 3, Normal speech Eye Opening: Spontaneous Motor: Obeys Commands Verbal: Oriented GCS Score: 15 - Psych Psych: Normal mood, Normal affect Results - Vitals Vitals: Oxygen O2 Source Room air PD MEDICAL DECISION MAKING - ED course Complexity details: considered differential, d/w patient ED course: patient says he was already feeling improved prior to this evaluation. Strongly denies SI/HI, was concerned with the degree of anxiety and how long the episode was lasting compared to previous such episodes. He is RRR on exam with normal heart rate. I d/w patient that with future episodes, he should try to get a heart rate (beats per minute) and take (mental) note whether the initial symptom is rapid palpitations, as tachydysrhythmia (such as SVT or JORDY) is typically sudden onset and can trigger other symptoms of anxiety and panic (particularly SVT). Per his description, this sounds unlikely and that he most likely is having panic attacks. Emergent testing not indicated at this time. Given lorazepam with rx for same, which I explained to him is only meant for as-needed and short-term use. Recurrent , frequent episodes might warrant other medication for long-term control at the discretion of his primary care provider. Departure - Departure Disposition: 01 Home, Self Care Clinical Impression: Panic attack Condition: Good Instructions: ED Panic Attack Follow-Up: NARDA Kolb [Provider Group] Prescriptions: LORazepam [Ativan] 0.5 - 1 mg PO BID PRN #14 tablet PRN Reason: Anxiety Comments: Your description of your symptoms sounds consistent with panic attacks. I have prescribed a short course of lorazepam (ativan) to be taken as needed when you have an episode of panic. You should follow up with your primary care provider to discuss other options for control of these symptoms should they become persistent or frequent enough to interfere with your daily routine and functioning. [facility] [place] Discharge Date/Time: 01/27/22 01:25
[2022-01-27] MEDS ORDERED: LORazepam 0.5 MG TABLET PO STA (00:57)
[2022-01-27 01:16] VITALS: BP 141/80
== END 2022-01-27 01:25 | disposition home or self-care (01) ==
LOC: ED 23:35
DX: F41.0 Panic disorder [episodic paroxysmal anxiety] (principal)
CPT/HCPCS: 99282; 99283; A9270

== ENCOUNTER 2022-04-15 08:00 | Outpatient (CLI) | payer OTHER ==
--- NOTE | 2022-04-15 10:12 | XRAY Report ---
PROCEDURE: Chest 2 View X-Ray INDICATIONS: CHEST PAIN, LEFT TECHNIQUE: 2 view(s) of the chest. COMPARISON: None. FINDINGS: Surgical changes and devices: None. Lungs and pleura: No pleural effusions or pneumothorax. Lungs are clear. Mediastinum: Mediastinal contours are normal. Heart size is normal. Bones and chest wall: No suspicious bony abnormalities. Soft tissues appear unremarkable. IMPRESSION: No acute cardiopulmonary disease process. Reviewed by: Andressa Santillan MD, PhD on 04/15/2022 10:11 AM PDT Approved by: Andressa Santillan MD, PhD on 04/15/2022 10:11 AM PDT Station ID: [id number]
== END 2022-04-15 23:59 | disposition home or self-care (01) ==
LOC: DI.N 08:00
PROVIDERS: ATTEND Registered Nurse
DX: R07.9 Chest pain, unspecified (principal)

== ENCOUNTER 2022-05-07 08:12 | Outpatient (CLI) | payer OTHER ==
--- NOTE | 2022-05-07 09:10 | SLEEP CARE CONSULTATION ---
Information from patient questionnaire entered by Janneth Love MA. I have reviewed and concur with the information entered by Janneth Love MA. This document represents the service I personally performed and the decisions made by , Ileana Cardozo ARNP. History of Present Illness Service Date and Time: 05/07/2022 0812 Previous diagnosis: Severe, Obstructive Sleep Apnea-Hypopnea Syndrome AHI: 40.1 (in 2020) Reason for follow up: first compliance (navarrete 02/26/22, resmed,) Equipment type: CPAP Equipment obtained from: [employer] (got initial supplies) Mask style: Nasal Mask brand: Resmed (Airfit) Backup mask available: No (will keep old mask when replaced) Last cushion change: 1 month Prior sleep studies: No Type of Sleep Study: Home sleep study HPI additional information: CHEKO OLIVIA was diagnosed to have severe, AHI 40.1, obstructive sleep apnea- hypopnea syndrome and returned today for CPAP therapy first compliance (ResMed) follow-up. Sleep Study - Results Type of Sleep Study: Home sleep study Prior sleep studies: No CPAP Compliance Data - Data Reviewed with Patient Average duration of nightly device use: 1 HOUR 44 MINUTES Compliance rate %: 3 (04/06/22-05/05/22; 30 days) Current pressure setting (cmH2O): 5-10 Average residual AHI: 4.4 Central apnea: 1.0 Obstructive apnea: 2.7 Hypopnea: .5 Average large leak: 5.9 Subjective Missed days of use due to: reports: other (taking mask off a couple hours without realizing) Patient concerns: reports: air blowing in eyes (occasionally), mask leak noise, condensation in mask/hose (resolved), dry mouth, nose, throat (resolved ). denies: aerophagia, mask discomfort, nasal congestion, epistaxis, other Observed to snore while using device: No Current pressure setting perceived as: comfortable On therapy, patient: reports: other (not really feeling benefit). denies: drowsiness while driving Initial [place] Sleepiness Scale score: 11 (in 2020) Current [place] Sleepiness Scale score: 5 (05/07/2022) Allergies and Home Medications Known drug allergies: No Home medication list reviewed: Yes (Omeprazole for heartburn) Allergy and home medication list: Allergies No Known Drug Allergies Allergy (Verified 01/26/22 23:44) Review of Systems Review of systems same as previous: No (heartburn) Physical Exam Vital signs obtained and entered by: DIANNE Daniel Blood Pressure: 127/73 (PULSE 84, RESP 16, LEFT) Cuff size: wrist Heart Rate: 68 O2 Saturation: 98 (N95) Height: 5 ft 9 in Weight: 211 lb 10.3 oz (UNIFORM AND BOOTS) Body Mass Index: 31.2 BMI Classification: Obese Impression and Plan 1. Obstructive Sleep Apnea-Hypopnea Syndrome, severe, with poor treatment compliance and good apnea control. On CPAP therapy, the patient has not yet felt any difference with treatment but he is not getting adequate treatment of his apnea. I advised him that he needs at least 6-6.5 hours of sleep to get the best benefit from his CPAP. His [place] is 5/24 today, initially it was 11/24. Patient occasionally gets some air leaking into his eyes depending upon his position when he sleeping. He states he just adjusts it and it seems to improve. He was having issues with condensation in the hose but reduced his humidifier level and that has resolved. He states he was getting some dry mouth at first but this also has resolved. Patient states he has been finding that he will take the mask off a couple hours into falling asleep without realizing it. His has seen him take the mask off and he does not remember doing it. He continues to replace the mask when he does find it off and placing on his face prior to going to sleep. He states he likes the current mask he is using. I encouraged him to continue to put the mask on prior to going to sleep nightly and we will follow-up with him again in 1 to 2 months to recheck his compliance. Patient's apnea severity and rationale for treatment to reduce apnea, improve sleep quality and reduce cardiovascular and cerebrovascular events was reviewed. I also reviewed the benefit of consistent device use of CPAP for arrhythmia and attention deficit. Patient's BMI was 31.2 today. * Continue auto CPAP pressure at 5-10 cmH2O * Notify me if snoring with mask or feeling that the pressure is too much or too little * Attempt to lose weight * Call this office if any problems using CPAP * Return for follow up in 1-2 months, or sooner if concerns arise Counseling Topics: Spare mask Visit Type: In Office Time Spent with Patient (minutes): 12 Provider Statement: I spent 100% of the Face to Face Visit with the patient with greater than 50% spent counseling the patient and coordination of care.
[2022-05-07 09:11] VITALS: BP 127/73
== END 2022-05-07 08:13 | disposition home or self-care (01) ==
LOC: SC 08:12
PROVIDERS: ATTEND Nurse Practitioner Family
DX: G47.33 Obstructive sleep apnea (adult) (pediatric) (principal); E66.9 Obesity, unspecified; Z68.31 Body mass index [BMI] 31.0-31.9, adult
CPT/HCPCS: 99212

== ENCOUNTER 2022-09-26 21:47 | Emergency (ER) | payer OTHER ==
--- NOTE | 2022-09-26 23:26 | ED Physician Documentation ---
History of Present Illness - Stated complaint Stated Complaint: ANXIETY - Chief complaint Chief Complaint: MHE - History of Present Illness Timing: How many minutes ago (40) Pain level max: 0 Pain level now: 0 - Additonal information Additional information: approximately 40 minutes FACE BOSS, patient had sudden onset of dyspnea, lightheadedness, "feel like I'm going to ", rapid palpitations. He has had these episodes before, attributed to anxiety/panic attacks. He has h/o atrial fibrillation, and he says that some of these events are triggered by skipped beats which immediately make him apprehensive that he might be going back into atrial fibrillation. No apparent triggers. Often he controls them with slow/deep breathing and other such modalities, but occasionally needs to use medication, specifically lorazepam has helped well on an as-needed basis in the past . He is out of this medication and is requesting a short course Review of Systems Cardiac: reports: Palpitations. denies: Chest pain / pressure Respiratory: reports: Dyspnea. denies: Cough GI: reports: Reviewed and negative Neurologic: reports: Reviewed and negative Psychiatric: reports: Reviewed and negative PD PAST MEDICAL HISTORY - Past Medical History Past Medical History: Yes Cardiovascular: Atrial fibrillation Respiratory: None, Sleep apnea, CPAP use Psych: Anxiety, Panic attacks, ADD/ADHD - Past Surgical History Past Surgical History: Yes General: Appendectomy - Present Medications Home Medications: Ambulatory Orders Medication Instructions Recorded Confirmed LORazepam [Ativan] 1 mg PO TID PRN #12 tablet 06/13/22 LORazepam [Ativan] 1 mg PO TID PRN #14 tablet 09/27/22 - Allergies Allergies/Adverse Reactions: Allergies Allergy/AdvReac Type Severity Reaction Status Date / Time SSRI AdvReac Anxiety Uncoded 09/26/22 21:54 - Social History Does the pt smoke?: No Smoking Status: Never smoker Does the pt drink ETOH?: Yes Does the pt have substance abuse?: No - Immunizations Immunizations are current?: Yes - POLST Patient has POLST: No PD ED PE NORMAL - Vitals Vital signs reviewed: Yes - General General: Alert and oriented X 3, No acute distress, Well developed/nourished - Cardiac Cardiac: RRR, No murmur, No gallop, No rub - Respiratory Respiratory: No respiratory distress, Clear bilaterally - Neuro Neuro: Alert and oriented X 3, resaw tailer 2-12 intact Eye Opening: Spontaneous Motor: Obeys Commands Verbal: Oriented GCS Score: 15 - Psych Psych: Normal mood, Normal affect Results - Vitals Vitals: Oxygen O2 Source Room air PD MEDICAL DECISION MAKING - ED course Complexity details: reviewed results, re-evaluated patient, considered differential, d/w patient ED course: Risks of regularly taking benzodiazepine such as lorazepam is d/w patient (including addiction, tolerance, and withdrawal). He says he is aware of these potential risks but that he takes them seldomly, only when he cannot control his (occasional ) panic attacks with non-pharmacologic methods. I provided an rx for lorazepam and encouraged him to follow up with his PMD to discuss other pharmacologic options for his symptoms Departure - Departure Disposition: 01 Home, Self Care Clinical Impression: Anxiety Condition: Good Instructions: ED Panic Attack Prescriptions: LORazepam [Ativan] 1 mg PO TID PRN #14 tablet PRN Reason: Anxiety Comments: A prescription for lorazepam (ativan) has been electronically submitted to [facility] pharmacy in [place]. Discharge Date/Time: 09/27/22 00:15
[2022-09-27] MEDS ORDERED: LORazepam 0.5 MG TABLET PO STA (00:10)
[2022-09-27 00:16] VITALS: BP 140/61
== END 2022-09-27 00:15 | disposition home or self-care (01) ==
LOC: ED 21:47
DX: F41.9 Anxiety disorder, unspecified (principal)
CPT/HCPCS: 99282; 99284; A9270

== ENCOUNTER 2023-01-01 20:18 | Emergency (ER) | payer OTHER ==
[2023-01-01] MEDS ORDERED: LORazepam 1 MG TABLET PO STA (20:57)
--- NOTE | 2023-01-01 20:59 | ED Physician Documentation ---
History of Present Illness - Stated complaint Stated Complaint: ANXIETY - Chief complaint Chief Complaint: MHE - History obtained from History obtained from: Patient - Additonal information Additional information: 27-year-old male presents with multiple anxiety attacks today. Ran out of prescription for Ativan and requesting refill. denies SI/HI/AVH PD PAST MEDICAL HISTORY - Past Medical History Cardiovascular: Atrial fibrillation Respiratory: None, Sleep apnea, CPAP use Psych: Anxiety, Panic attacks, ADD/ADHD - Past Surgical History Past Surgical History: Yes General: Appendectomy - Present Medications Home Medications: Ambulatory Orders Medication Instructions Recorded Confirmed LORazepam [Ativan] 1 mg PO TID PRN #12 tablet 06/13/22 LORazepam [Ativan] 1 mg PO TID PRN #14 tablet 09/27/22 LORazepam [Ativan] 1 mg PO TID PRN #10 tablet 01/01/23 - Allergies Allergies/Adverse Reactions: Allergies Allergy/AdvReac Type Severity Reaction Status Date / Time SSRI AdvReac Anxiety Uncoded 01/01/23 20:30 - Social History Does the pt smoke?: No Smoking Status: Never smoker Does the pt drink ETOH?: Yes Does the pt have substance abuse?: No - Immunizations Immunizations are current?: Yes - POLST Patient has POLST: No PD ED PE NORMAL - Vitals Vital signs reviewed: Yes - General General: Alert and oriented X 3, Other (anxious appearing) - HEENT HEENT: Atraumatic, PERRL, EOMI - Derm Derm: Normal color, Warm and dry - Neuro Neuro: Alert and oriented X 3 - Psych Psych: Other (anxious affect) Results - Vitals Vitals: Vital Signs - 24 hr 01/01/23 20:30 Temperature 36.5 C Oxygen O2 Source Room air PD Medical Decision Making - ED course Complexity details: reviewed old records, d/w patient ED course: 27-year-old man presented with multiple anxiety attacks tonight states that he ran out of his rescue medication. [facility] Discussed need for psychiatrist prescription in future for controlled substances.Provided brief Rx for rescue Ativan. Return precautions given. Departure - Departure Disposition: Home, Self Care Clinical Impression: Anxiety, Sleep apnea Condition: Stable Instructions: ED Panic Attack Prescriptions: LORazepam [Ativan] 1 mg PO TID PRN #10 tablet PRN Reason: Anxiety Comments: You are seen in the emergency department for anxiety. Please take your medications as prescribed and follow-up with your [facility] provider [facility] for referral to psychiatry. Return to the emergency department for any new or worsening symptoms or other concerns. Prescription sent to [facility] electronically.
[2023-01-01 21:18] VITALS: BP 155/91
== END 2023-01-01 21:22 | disposition home or self-care (01) ==
LOC: ED 20:18
DX: F41.9 Anxiety disorder, unspecified (principal); G47.30 Sleep apnea, unspecified; I48.91 Unspecified atrial fibrillation
CPT/HCPCS: 99282; 99283; J8499

== ENCOUNTER 2023-04-27 11:16 | Emergency (ER) | payer OTHER ==
[2023-04-27 11:44] VITALS: BP 152/83
[2023-04-27] MEDS ORDERED: ALPRAZolam 0.25 MG TABLET PO STA (12:09)
--- NOTE | 2023-04-27 12:17 | ED Physician Documentation ---
PD HPI DYSPNEA - Stated complaint Stated Complaint: SOA,POUNDING HEART - Chief complaint Chief Complaint: Cardiac - History obtained from History obtained from: Patient - Additional information Additional information: The patient comes to the emergency department chief complaint of panic attack and palpitations. He states that about 2 hours ago, he began to feel as though he was having palpitations and they did not just go away after a few seconds. Patient states he has a history of a diagnosis of atrial fibrillation back in 2019 and that he started to worry that perhaps his A-fib had come back. He states this triggered a panic attack and that he then began breathing hard with his heart pounding. The patient states that the palpitations seem to go away but he still feels anxious. He denies chest pain. He felt somewhat short of breath when the panic attack kicked in. He denies any other complaints at this time. PD PAST MEDICAL HISTORY - Past Medical History Past Medical History: Yes Cardiovascular: Atrial fibrillation Respiratory: Sleep apnea, CPAP use Neuro: None Endocrine/Autoimmune: None GI: None : None HEENT: None Psych: Anxiety, Panic attacks, ADD/ADHD Musculoskeletal: None Derm: None - Past Surgical History Past Surgical History: Yes General: Appendectomy Cardiovascular: Other - Present Medications Home Medications: Ambulatory Orders Medication Instructions Recorded Confirmed No Known Home Medications 04/27/23 04/27/23 - Allergies Allergies/Adverse Reactions: Allergies Allergy/AdvReac Type Severity Reaction Status Date / Time SSRI AdvReac Anxiety Uncoded 04/27/23 11:19 - Social History Does the pt smoke?: No Smoking Status: Light tobacco smoker Does the pt drink ETOH?: Yes Does the pt have substance abuse?: Yes Substance Use and Type: Marijuana - Immunizations Immunizations are current?: Yes - POLST Patient has POLST: No PD ED PE NORMAL - Vitals Vital signs reviewed: Yes - General General: Alert and oriented X 3, No acute distress, Well developed/nourished, Other (The patient appears slightly anxious but otherwise in no apparent distress.) - HEENT HEENT: Atraumatic, PERRL, EOMI, Moist mucous membranes - Neck Neck: Supple, no meningeal sign - Cardiac Cardiac: RRR, No murmur - Respiratory Respiratory: No respiratory distress, Clear bilaterally - Abdomen Abdomen: Soft, Non tender, Non distended - Derm Derm: Normal color, Warm and dry, No rash - Extremities Extremities: No deformity, No edema - Neuro Neuro: Alert and oriented X 3, 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 Relevant findings are: Rate: Rate (enter#) (129) Rhythm: NSR [place]: Normal Intervals: Normal [place] QRS: Normal Ischemia: Normal ST segments Compare to prior EKG: Old EKG unavailable Computer interpretation: Agree with computer PD Medical Decision Making - ED course Complexity details: reviewed results, re-evaluated patient, considered differential, d/w patient ED course: The patient was placed on the technical spec in the emergency department an EKG was performed and both showed sinus tachycardia with very definite P waves and no atrial fibrillation. The patient's tachycardia ranged from the low 100s to the 1 teens though he was initially 120s when he arrived in the emergency department. The patient was given a dose of Xanax. He ambulated easily to the bathroom in the emergency department and I felt he was stable for discharge home. We have discussed the need for follow-up with his primary care physician. Departure - Departure Disposition: 01 Home, Self Care Clinical Impression: Palpitations with regular cardiac rhythm, Panic attack Condition: Stable Instructions: ED Palpitations, ED Panic Attack Comments: Your EKG shows mild elevation of your heart rate, but the rhythm itself is otherwise normal. You are not in A-fib today. If you have further concerns about your heart, please follow-up with your doctor about this. We have given you a dose of medication for your panic attack, and you should not drive or 6 hours following this. Discharge Date/Time: 04/27/23 12:20
== END 2023-04-27 12:20 | disposition home or self-care (01) ==
LOC: ED 11:16
DX: F41.0 Panic disorder [episodic paroxysmal anxiety] (principal); R00.2 Palpitations; I48.91 Unspecified atrial fibrillation; Z72.0 Tobacco use
CPT/HCPCS: 93005; 99283; A9270